=== PATIENT | female | born 1950 | race Caucasian/White ===

== ENCOUNTER 2021-04-22 01:03 | Observation (INO) | payer OTHER ==
[~2021-04-22] VITALS: Ht 154.9 cm; Wt 67.6 kg
[~2021-04-22 01:03] MED LIST: PREDNISONE 20 M20 M1 PO; PROZAC20 MG PO; VENTOLIN HFA 1818 GM INH; XANAX XR0.5 MG PO; ZPAK PO
[2021-04-22 01:11] VITALS: BP 192/99
[2021-04-22 01:49] LABS: CALCIUM 8.8 mg/dL (8.5-10.1); CREATININE 0.9 mg/dL (0.6-1.3); POTASSIUM 3.7 mmol/L (3.5-5.1)
[2021-04-22 02:02] LABS: URINE BILIRUBIN NEGATIVE (Negative); URINE BLOOD NEGATIVE (Negative); URINE CLARITY CLEAR; URINE COLOR YELLOW; URINE GLUCOSE-RANDOM NEGATIVE (Negative); URINE KETONES NEGATIVE (Negative); URINE LEUKOCYTES-REFLEX NEGATIVE (Negative); URINE NITRITE-REFLEX NEGATIVE (Negative); URINE PROTEIN NEGATIVE (Negative); URINE UROBILINOGEN 0.2 E.U./dl (0.2-1.0)
[2021-04-22 02:03] LABS: ABSOLUTE EOSINOPHILS 0.3 thou/uL (0.0-0.7); ABSOLUTE LYMPHOCYTES 1.9 thou/uL (0.8-5.3); ABSOLUTE MONOCYTES 0.8 thou/uL (0.0-1.2); ABSOLUTE NEUTROPHILS 5.5 thou/uL (1.6-8.1); BASOPHILS 0.4 %; EOSINOPHILS 3.7 %; HEMATOCRIT 38.1 % (37.0-47.0); HEMOGLOBIN 12.3 gm/dL (12.0-15.0); LYMPHOCYTES 22.2 %; MCH 26.9 pg (26.0-34.0); MCHC 32.2 g/dL (28.0-37.0); MCV 83.5 fL (80.0-100.0); MONOCYTES 8.8 %; MPV 7.6 fl. (7.2-11.1); NUCLEATED RBCS 0 /100WBC; PLATELET COUNT* 361 thou/uL (150-400); POLYS 64.9 %; RBC 4.56 mil/uL (4.20-5.00); RDW-CV 15.8 % (10.5-14.5); WBC 8.5 thou/uL (4.0-11.0)
[2021-04-22 07:33] VITALS: BP 135/77
[2021-04-22 11:30] VITALS: BP 125/67
[2021-04-22] MEDS ORDERED: COZAAR 25 MG TA25 M2 PO (12:49)
[2021-04-22] MEDS ORDERED: PROTONIX40 M2 PO (15:18)
[2021-04-22 15:24] VITALS: BP 125/67
[2021-04-22 15:39] VITALS: BP 140/95
--- NOTE | 2021-04-22 16:42 | EKG ---
[place] [address] ELECTROCARDIOGRAM REPORT Name: GIORGIO JOHNSON Room: [address]#: [id number] Admission: 04/22/21 Attend Phys: Earnestine Huff, Discharge: 04/22/21 Date of : 50 Date of Service: 04/22/21 0113 Report #: [id number] THIS REPORT FOR: //name// [facility] ED Test Date: 2021-04-22 Test Time: 01:13:25 Pat Name: GIORGIO JOHNSON Department: Room: [facility] Gender: F Grip Wrapper: : 1950 Requested By: Tonie Edwards Order Number: [id number] MD: Epifanio Wei Measurements Intervals [place] Rate: 88 P: 47 [place]: 148 QRS: 18 QRSD: 89 T: QT: 393 QTc: 476 Interpretive Statements Sinus rhythm Borderline repolarization abnormality Borderline prolonged QT interval No previous ECG available for comparison Electronically Signed On 04-22-2021 16:42:13 ENTER[employer]ISE SALES PERSON by Epifanio Wei [email or web address] <ELECTRONICALLY SIGNED> By: Epifanio Wei MD, [facility] 04/22/21 1642 0113 0113 Epifanio Wei MD, [facility] /EPI
--- NOTE | 2021-04-28 09:07 | CON ---
[address] [address] CONSULTATION Name: GIORGIO JOHNSON Room: [address] Tiago Sinha#: [id number] Admission: 04/22/21 Attend Phys: Earnestine Huff MD Discharge: 04/22/21 Date of : 50 Report #: [id number] THIS REPORT FOR: cc: Bryce Osborn,Epifanio Velasquez MD [facility] ~ DATE OF CONSULTATION: 04/22/2021 CARDIOLOGY CONSULTATION HISTORY OF PRESENT ILLNESS: The patient is a 70-year-old single white female who I was asked to see in the Emergency Room today after she was noted to have elevated blood pressure. The patient has no previous history of heart disease. She has never had any cardiac evaluation. She is not very active at this time because of arthritis and uses a cane. She lives by herself in [place], [place]. She notes she has not felt well for about 3 days. She felt some nausea. She has had some loose stools. She has some chest discomfort after eating. She had some belching. Yesterday, she was visiting friends in [place], [place]. She took her blood pressure, which was elevated. They called an ambulance. The ambulance left and recommended she go to the Emergency Room. She was brought by private vehicle to [place] today and admitted. She denies any dyspnea on exertion, cough, fever, lower extremity edema. She denied exertional chest tightness, palpitations, syncope. PAST MEDICAL HISTORY: He has had previous hip surgery. MEDICATIONS: She takes Xanax for anxiety and the stomach pill for indigestion. ALLERGIES: She has no known drug allergies. FAMILY HISTORY: Her brother had a stent. SOCIAL HISTORY: She is , lives by herself in [place], [place]. No smoking, no alcohol abuse. 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 REVIEW OF SYSTEMS: No history of stroke, asthma, liver disease, kidney disease or cancer. She has a history of anxiety. No chronic skin condition. PHYSICAL EXAMINATION: GENERAL: Revealed an elderly female who appeared in no acute distress. VITAL SIGNS: On admission, blood pressure 190/90, it is currently 120/70, pulse is 90. She is afebrile. HEENT: She was anicteric. Conjunctivae pink. Mucous membranes moist. NECK: Neck veins do not appear distended. No carotid bruits. CHEST: [place] [address] CONSULTATION Name: GIORGIO JOHNSON [address] [id number] Admission: 04/22/21 Attend Phys: Earnestine Huff MD Discharge: 04/22/21 Date of : 50 Report #: [id number] HEART: Regular rate and rhythm. ABDOMEN: Soft. EXTREMITIES: Had no pitting edema. Dorsalis pedis pulse 2+ bilaterally. SKIN: Cool and dry. NEUROLOGIC: Nonfocal.. LABORATORY DATA: ECG shows a sinus rhythm. There was nonspecific ST and T-wave changes noted. Her workup in the Emergency Room, she had a portable chest x-ray that showed normal heart size, clear lung [place]. Her high sensitivity troponin was 80 and 75 on repeat, hematocrit 38.1. Her COVID antigen stat test was negative. Urinalysis is negative for protein, negative for leukocytes. IMPRESSION AND RECOMMENDATIONS: 1. Hypertension. I will consider discharging the patient on an ARB and follow up with her primary care physician. 2. Chest pain. Atypical for angina. No evidence of acute myocardial infarction. I think it is reasonable to discharge the patient at this time and recommend an outpatient stress test with imaging. 2. History of anxiety. 3. Dyspepsia. 4. Borderline troponin. No evidence of acute myocardial infarction. <ELECTRONICALLY SIGNED> By: Epifanio Wei MD, FACC 04/28/21 0907 1251 [id number] Wei MD, FACC /nt
== END 2021-04-22 15:39 | disposition home or self-care (01) ==
LOC: M.ERS 01:03 → M.TBA-ER 03:11
PROVIDERS: Emergency Medicine; ADMIT Internal Medicine; ATTEND Internal Medicine
DX: R07.89 Other chest pain (principal); Z20.822 Contact with and (suspected) exposure to COVID-19; I16.0 Hypertensive urgency; R42 Dizziness and giddiness; F41.9 Anxiety disorder, unspecified; R77.8 Other specified abnormalities of plasma proteins; K25.9 Gastric ulcer, unspecified as acute or chronic, without hemorrhage or perforation; I10 Essential (primary) hypertension; M25.519 Pain in unspecified shoulder; G89.29 Other chronic pain; R10.13 Epigastric pain; K21.9 Gastro-esophageal reflux disease without esophagitis

== ENCOUNTER 2021-04-26 22:52 | Emergency (ER) | payer OTHER ==
[~2021-04-26] VITALS: Ht 154.9 cm; Wt 67.6 kg
[~2021-04-26 22:52] MED LIST changes: +COZAAR 25 MG TA25 M2 PO; +PROTONIX40 M2 PO
[2021-04-27 02:17] LABS: ABSOLUTE EOSINOPHILS 0.3 thou/uL (0.0-0.7); ABSOLUTE LYMPHOCYTES 1.4 thou/uL (0.8-5.3); ABSOLUTE MONOCYTES 0.6 thou/uL (0.0-1.2); ABSOLUTE NEUTROPHILS 5.3 thou/uL (1.6-8.1); BASOPHILS 0.6 %; EOSINOPHILS 3.7 %; HEMATOCRIT 37.6 % (37.0-47.0); HEMOGLOBIN 12.1 gm/dL (12.0-15.0); LYMPHOCYTES 18.2 %; MCH 27.1 pg (26.0-34.0); MCHC 32.1 g/dL (28.0-37.0); MCV 84.2 fL (80.0-100.0); MONOCYTES 7.3 %; MPV 7.2 fl. (7.2-11.1); NUCLEATED RBCS 0 /100WBC; PLATELET COUNT* 345 thou/uL (150-400); POLYS 70.2 %; RBC 4.46 mil/uL (4.20-5.00); RDW-CV 15.6 % (10.5-14.5); WBC 7.6 thou/uL (4.0-11.0)
[2021-04-27 02:26] LABS: CALCIUM 8.3 mg/dL (8.5-10.1); POTASSIUM 3.7 mmol/L (3.5-5.1)
[2021-04-27 02:31] LABS: ALBUMIN 3.4 g/dL (3.4-5.0); TOTAL BILIRUBIN 0.3 mg/dL (<0.1-1.0); TOTAL PROTEIN 7.3 g/dL (6.4-8.2)
[2021-04-27 05:18] VITALS: BP 137/75
--- NOTE | 2021-04-27 09:58 | EKG ---
[place] [address] ELECTROCARDIOGRAM REPORT Name: GIORGIO JOHNSON Room: [facility]#: [id number] Admission: 04/26/21 Attend Phys: Discharge: 04/27/21 Date of : 50 Date of Service: 04/26/212301 Report #: [id number] THIS REPORT FOR: //name// [facility] ED Test Date: 2021-04-26 Test Time: 23:02:10 Pat Name: GIORGIO JOHNSON Department: Room: Gender: Bass Fisher: : 1950 Requested By: Cathryn Castañeda Order Number: [id number] MD: Gerry Torres Measurements Intervals [place]met Rate: 66 P: 22 SD: 147 QRS: -1 QRSD: 93 T: 16 QT: 455 QTc: 477 Interpretive Statements Sinus rhythm Borderline prolonged QT interval Compared to ECG 04/22/2021 01:13:25 No significant changes Electronically Signed On 04-27-2021 9:58:38 ELECTRICAL CAD TECHNICIAN by Gerry Torres [email or web address] <ELECTRONICALLY SIGNED> By: Gerry Torres MD, [facility] 04/27/21 0958 01 01 Gerry Torres MD, [facility] /EPI
== END 2021-04-27 05:20 | disposition home or self-care (01) ==
LOC: M.ERS 22:52
PROVIDERS: Personal Emergency Response Attendant
DX: R07.89 Other chest pain (principal); Z79.899 Other long term (current) drug therapy